=== PATIENT | male | born 1945 | race Caucasian/White ===

== ENCOUNTER 2023-04-01 21:03 | Emergency (ER) | payer MEDICARE ==
[2023-04-01] MEDS ORDERED: ACETAMINOPHEN TAB 325 MG TAB PO STA (21:29)
--- NOTE | 2023-04-01 21:51 | ED ---
Fall HPI - General Chief Complaint: Fall Stated Complaint: Fall Time Seen by Provider: 04/01/23 21:23 Source: patient, RN notes reviewed Mode of arrival: ambulatory Limitations: no limitations - History of Present Illness Initial Comments: This is a 77-year-old male who presents to the emergency department for a fall. Patient was standing on a 3 legged table trying to change a light bulb, when he lost his balance and fell backwards. States that he hit the back of his head and also injured his lower back. States that he may have lost consciousness for a couple of seconds. Denies being on any blood thinners. His states that on the way here he did seem somewhat confused. The head is not particularly painful at this time, states that most of the pain is in the right lower back. He has also started to notice swelling to this area. Denies any fevers, chills, sore throat, cough, dyspnea, chest pain, palpitations, abdominal pain, nausea, vomiting, or diarrhea. MD Complaint: fall - Related Data Previous Rx's Medication Instructions Recorded Lidocaine 5% Patch [Lidoderm 5% 1 patch TOPICAL DAILY PRN #30 patch 04/01/23 Patch] Allergies Allergy/AdvReac Type Severity Reaction Status Date / Time No Known Allergies Allergy Verified 06/30/17 12:30 Review of Systems ROS Statement: Those systems with pertinent positive or pertinent negative responses have been documented in the HPI. ROS Other: All systems not noted in ROS Statement are negative. Past Medical History Past Medical History: Coronary Artery Disease (CAD), Cancer, Hypertension, Myocardial Infarction ([place]) Additional Past Medical History / Comment(s): bladder cancer History of Any Multi-Drug Resistant Organisms: None Reported Past Surgical History: Heart Catheterization With Stent, Tonsillectomy Past Psychological History: No Psychological Hx Reported Smoking Status: Never smoker Past Alcohol Use History: Occasional Past Drug Use History: None Reported General Exam Limitations: no limitations General appearance: alert, in no apparent distress Head exam: Present: other (2 skin tears over the occiput without any active bleeding.) Eye exam: Present: normal appearance, PERRL, EOMI. Absent: scleral icterus, conjunctival injection, periorbital swelling Respiratory exam: Present: normal lung sounds bilaterally. Absent: respiratory distress, wheezes, rales, rhonchi, stridor Cardiovascular Exam: Present: regular rate, normal rhythm, normal heart sounds. Absent: systolic murmur, diastolic murmur, rubs, gallop, clicks Back exam: Present: other (Swelling and tenderness over the right sacral region) Neurological exam: Present: alert, oriented X3, CN II-XII intact Psychiatric exam: Present: normal affect, normal mood Skin exam: Present: warm, dry, intact, normal color. Absent: rash Course Vital Signs 04/01/23 04/01/23 04/01/23 21:10 21:25 22:50 Temperature 98.3 F 97.9 F Pulse Rate 63 67 65 Respiratory 18 16 Rate Blood Pressure 105/58 117/68 133/77 O2 Sat by Pulse 96 96 96 Oximetry Medical Decision Making - Medical Decision Making This is a 77-year-old male who presents to the emergency department for a fall. Was pt. sent in by a medical professional or institution? @ -No Did you speak to anyone other than the patient for history? @ -His explained that he did seem confused on the way here. Did you review nursing and triage notes? @ -Yes, and I agree, it is accurate with regards to the patient's symptoms. Were old charts reviewed? @ -No Differential Diagnosis? @ -Differential Diagnosis Head Injury: Contusion, hematoma, intracranial hemorrhage, skull fracture, whiplash, concussion, this is not meant to be an all-inclusive list. EKG interpreted by me (3pts min.)? @ -Not obtained X-rays interpreted by me (1pt min.)? @ -Not obtained CT interpreted by me (1pt min.)? @ -Computed tomography scan of the brain and c-spine obtained. My interpretation identifies no evidence of an acute intracranial hemorrhage, skull fracture, or cervical spine fracture. Computed tomography scan of the pelvis obtained as well. My interpretation identifies no acute fractures. U/S interpreted by me (1pt. min.)? @ -Not obtained What testing was considered but not performed? (CT, X-rays, U/S, labs)? Why? @ -None What meds were considered but not given? Why? @ -None Did you discuss the management of the patient with other professionals? @ -No Did you reconcile home meds? @ -No Was smoking cessation discussed for >3mins.? @ -No Was critical care preformed (if so, how long)? @ -No Were there social determinants of health that impacted care today? How? (Homelessness, low income, unemployed, alcoholism, drug addiction, transportation, low edu. Level, literacy, decrease access to med. care, retirement, rehab)? @ -No Was there de-escalation of care discussed even if they declined? (Discuss DNR or withdrawal of care, Hospice)? @ -No What co-morbidities impacted this encounter? (DM, HTN, Smoking, COPD, CAD, Cancer, CVA, Hep., AIDS, mental health diagnosis, sleep apnea, morbid obesity)? @ -None Was patient admitted / discharged? @ -Discharged. Computed tomography scan of the brain/C-spine and pelvis obtained revealing swelling to the back of the head, where the patient sustained the injury. No other acute process was identified. He did have 2 very small superficial skin tears that did not require repair. He was given a dose of Tylenol and a lidocaine patch was applied to the right sacral area. Advise he alternate with ibuprofen and Tylenol as needed for pain relief. Prescription for lidocaine patches provided with dosing instructions reviewed. Undiagnosed new problem with uncertain prognosis? @ -None Drug Therapy requiring intensive monitoring for toxicity (Heparin, Nitro, Insulin, Cardizem)? @ -None Were any procedures done? @ -None Diagnosis/symptom? @ -Fall, head injury, right sacral pain Acute, or Chronic, or Acute on Chronic? @ -Acute Uncomplicated (without systemic symptoms) or Complicated (systemic symptoms)? @ -Uncomplicated Side effects of treatment? @ -None Exacerbation, Progression, or Severe Exacerbation] @ -Not applicable Poses a threat to life or bodily function? @ -No Return precautions reviewed in depth, the patient is instructed to return to the emergency department with any new, worsening, or concerning symptoms. Patient verbalized understanding. This case was discussed in detail with the attending ED physician, Dr. Allison. Presentation, findings, and treatment plan discussed in detail as well. - Radiology Data Radiology results: report reviewed, image reviewed Disposition Clinical Impression: Fall, Head injury, Lower back pain Disposition: HOME SELF-CARE Instructions (If sedation given, give patient instructions): Fall Prevention for Older Adults (ED) Additional Instructions: Return to the emergency department with any new, worsening, or concerning symptoms. Take Tylenol as needed for pain relief. You can also apply the lidocaine patches daily. Follow up with your primary care provider in 1-2 days. Prescriptions: Lidocaine 5% Patch [Lidoderm 5% Patch] 1 patch TOPICAL DAILY PRN #30 patch PRN Reason: Pain Is patient prescribed a controlled substance at d/c from ED?: No Referrals: Ravi Plata DO [Primary Care Provider] - 1-2 days
--- NOTE | 2023-04-01 22:13 | CT ---
EXAMINATION TYPE: CT brain cspine wo con CT DLP: 1586.4 mGycm, Automated exposure control for dose reduction was used. DATE OF EXAM: 04/01/2023 9:59 PM COMPARISON: None. CLINICAL INDICATION:Male, 77 years old with history of Fall with LOC; Fall with LOC. Laceration to po sterior head TECHNIQUE: Brain: Multiple axial CT images of the brain were obtained without IV contrast. Cspine: Axial CT images from the skull base to the inferior aspect of T2 we obtained without intraven ous contrast. Coronal and sagittal reformatted images were also reviewed. FINDINGS: Brain: Extra-axial spaces: No abnormal extra-axial fluid collections. Ventricular system: Within normal limits Cerebral parenchyma: No acute intraparenchymal hemorrhage or mass effect. The pedersen-white junction is well differentiated. Cerebellum: Unremarkable. Mass effect: No evidence of midline shift. Intracranial vasculature: Atherosclerotic calcifications of the intracranial vessels. Soft tissues: Normal. Calvarium/osseous structures: No depressed skull fracture. Paranasal sinuses and mastoid air cells: Mild scattered mucosal thickening and or secretions. Visualized orbits: Orbital contents are intact. Cervical spine: Fracture: None. Osseous structures: Multilevel degenerative disc disease changes with endplate spurring and disc oste ophyte complex's. Vertebral alignment: Within normal limits. Spinal canal/Neural Foramina: Disc osteophyte complexes at C3-C4, C5-C6 and C6-C7 with at least mild spinal canal stenosis. Facet joint uncovertebral joint arthropathy scattered throughout the cervical spine with varying degrees of neural foraminal stenosis. Neck soft tissues: Prevertebral soft tissues are within normal limits. Other: The airway is patent. The lung apices are clear. IMPRESSION: 1. No acute intracranial process. 2. Posterior skull edema without evidence for fracture. 3. No evidence of cervical spine fracture. 4. Mild multilevel degenerative disc disease.
--- NOTE | 2023-04-01 22:17 | CT ---
EXAMINATION TYPE: CT pelvis wo con CT DLP: 656.6 mGycm, Automated exposure control for dose reduction was used. DATE OF EXAM: 04/01/2023 10:04 PM COMPARISON: None CLINICAL INDICATION:Male, 77 years old with history of Pain and swelling after fall; Fall with LOC. p ain and swelling to buttocks TECHNIQUE: Axial CT of the abdomen and pelvis. Sagittal and coronal reformats were created on a [employer] workstation. Contrast used: (none if empty) Oral contrast used: without Oral Contrast (none if empty) FINDINGS: BLADDER: Unremarkable REPRODUCTIVE: Prostate is enlarged in size measuring 5.0 cm in transverse dimension. ABDOMEN & PELVIS STOMACH AND BOWEL: No evidence of bowel obstruction. PERITONEUM/RETROPERITONEUM: No evidence of pneumoperitoneum or free fluid. VASCULATURE: Moderate atherosclerotic calcifications are present throughout the abdominal aorta and i ts branches. No evidence of aortic aneurysm. MUSCULOSKELETAL: No acute osseous abnormalities LYMPH NODES: No gross evidence for lymphadenopathy. SOFT TISSUE/ABDOMINAL WALL: Bilateral fat-containing inguinal hernias. IMPRESSION: The osseous structures appear intact. No evidence for acute pelvic process.
[2023-04-01] MEDS ORDERED: LIDOCAINE 5% PATCH TOPICAL ONE (22:38)
[2023-04-01 22:51] VITALS: BP 133/77; PULSE 65; RESP 16; TEMP 97.9
[2023-04-01] MEDS ORDERED: ACET/COD 300 MG/30 MG STARTER PACK 6 TAB BTL PO STA (22:51)
== END 2023-04-01 23:16 | disposition home or self-care (01) ==
LOC: EC 21:03
DX: S01.01XA Laceration without foreign body of scalp, initial encounter (principal); M54.50 Low back pain, unspecified; I10 Essential (primary) hypertension; I25.2 Old myocardial infarction; I25.10 Atherosclerotic heart disease of native coronary artery without angina pectoris; Z95.5 Presence of coronary angioplasty implant and graft; W18.30XA Fall on same level, unspecified, initial encounter
CPT/HCPCS: 70450; 72125; 72192; 99284